=== PATIENT | male | born 2000 | race Two or more races ===

== ENCOUNTER 2023-01-02 07:57 | Emergency (ER) | payer MEDICAID, OTHER ==
[2023-01-02] MEDS ORDERED: DIPHENOXYLATE W/ATROPINE 2.5 MG TAB PO ONE (13:30)
[2023-01-02] MEDS ORDERED: POTASSIUM EFFERVESENT TAB 25 MEQ PO ONE (13:45)
[2023-01-02 14:53] LABS: Alanine Aminotransferase 15 U/L (7-40); Albumin 5.1 g/dL (3.2-4.8); Alkaline Phosphatase 113 U/L (46-116); Anion Gap 9 (5-15); Aspartate Aminotransferase 13 U/L (13-40); BUN/Creatinine Ratio 5.1 (10.0-20.0); Bilirubin, Total 1.1 mg/dL (0.2-1.0); Blood Urea Nitrogen 5 mg/dL (9-23); Calcium 9.9 mg/dL (8.5-10.1); Carbon Dioxide 25 mmol/L (20-30); Chloride 104 mmol/L (98-107); Cholesterol 126 mg/dL (< 200); Glucose 139 mg/dL (74-106); HDL Cholesterol 50 mg/dL (40-59); LDL Cholesterol 62 mg/dL (< 100); Potassium 3.3 mmol/L (3.5-5.1); Sodium 138 mmol/L (136-145); Total Protein 8.8 g/dL (5.7-8.2); Triglycerides 68 mg/dL (< 150)
[2023-01-02] MEDS ORDERED: DIPH2.5T73 PO (15:51)
[2023-01-02] MEDS ORDERED: METR-344 PO (15:53)
[2023-01-02 16:23] VITALS: BP 148/62; PULSE 84; RESP 20; TEMP 98; O2SAT 99
[2023-01-02 16:41] LABS: Basophils # (auto) 0 10 ^3/uL (0-0.2); Basophils % (auto) 0.2 % (0.0-2.0); Eosinophils % (auto) 6.7 % (0.0-7.0); Hematocrit 51.9 % (41.0-53.0); Hemoglobin 17.6 g/dL (13.5-17.5); Lymphocytes # (auto) 3.5 10 ^3/uL (0.4-5.4); Lymphocytes % (auto) 24.1 % (10.0-50.0); Mean Corpuscular Hemoglobin 29.7 pg (28.0-32.0); Mean Corpuscular Volume 87.3 fL (80.0-100.0); Monocytes # (auto) 0.8 10 ^3/uL (0-1.3); Monocytes % (auto) 5.7 % (0.0-12.0); Neutrophils # (auto) 9.1 10 ^3/uL (1.6-8.6); Neutrophils % (auto) 63.3 % (37.0-80.0); Nucleated Red Blood Cells % 0.2 %; Red Blood Cells 5.95 10^6/uL (4.5-5.90); Red Cell Distribution Width 12.8 % (11.8-14.3); White Blood Cell 14.4 10^3/uL (4.4-10.8)
== END 2023-01-02 16:23 | disposition home or self-care (01) ==
LOC: ER 07:57
DX: K52.9 Noninfective gastroenteritis and colitis, unspecified (principal); Z79.899 Other long term (current) drug therapy
CPT/HCPCS: 36415; 74176; 80053; 80061; 85025

== ENCOUNTER → 2023-01-02 | Emergency (ER) | payer MEDICAID ==
[~2023-01-02] MED LIST: DIPH2.5T73 PO; METR-344 PO
== END | disposition left against medical advice (07) ==
LOC: ER 07:57
DX: R19.7 Diarrhea, unspecified (principal); R11.2 Nausea with vomiting, unspecified; Z53.21 Procedure and treatment not carried out due to patient leaving prior to being seen by health care provider